=== PATIENT | female | born 1945 | race Caucasian/White ===

== ENCOUNTER 2017-04-15 06:01 | Day surgery (SDC) | payer BC ==
--- NOTE | ~2017-04-15 | EGD ---
EGD REPORT [facility] [address] [id number] NAME: PARMINDER SEGURA : [birth year] STATUS : REG [facility]#: [id number] AGE: 71 ADM/REG DATE : 04/15/17 MR#: [id number] REPORT SERV DATE: 04/15/17 DICTATED BY: SWAPNIL COX DATE: 04/15/17 REPORT STATUS : Draft TRANSCRIBED BY: [employer] DATE: 04/15/17 [facility] Center Patient Name: Parminder Segura Date of : 1945 Attending MD: SWAPNIL COX MD Procedure Date No Time: 04/15/2017 Procedure: Upper GI endoscopy Indications: Dysphagia Referring MD: LORNA ANDRADE Medicines: as per anesthesia Complications: No immediate complications. Procedure: Pre-Anesthesia Assessment: - ASA Grade Assessment: II - A patient with mild systemic disease. After obtaining informed consent, the endoscope was passed under direct vision. Throughout the procedure, the patient's blood pressure, pulse, and oxygen saturations were monitored continuously. The GIF [id number] was introduced through the mouth, and advanced to the third part of duodenum. The upper GI endoscopy was accomplished without difficulty. The patient tolerated the procedure. Findings: A mild Schatzki ring (acquired) was found at the gastroesophageal junction. The scope was withdrawn. Dilation was performed with a Al dilator with no resistance at 44 Fr. A small hiatus hernia was present. The examined duodenum was normal. Impression: - Mild Schatzki ring. Dilated. - Hiatus hernia. - Normal examined duodenum. Recommendation: - Continue present medications. Procedure Code(s): --- Professional --- 46869, Esophagogastroduodenoscopy, flexible, transoral; diagnostic, including collection of specimen(s) by brushing or washing, when performed (separate procedure) 11731, Dilation of esophagus, by unguided sound or bougie, single or multiple passes Diagnosis Code(s): --- Professional --- K22.2, Esophageal obstruction EGD REPORT [place] [address] [address] [id number] NAME: PARMINDER SEGURA : [birth year] STATUS : [place] [facility] [place] [id number] AGE: 71 ADM/REG DATE : 04/15/17 MR#: [id number] REPORT SERV DATE: 04/15/17 DICTATED BY: SWAPNIL COX. DATE: 04/15/17 REPORT STATUS : Draft TRANSCRIBED BY: [facility] DATE: 04/15/17 K44.9, Diaphragmatic hernia without obstruction or gangrene R13.10, Dysphagia, unspecified CPT copyright 2013 [employer]. All rights reserved. The codes documented in this report are preliminary and upon cigar inspector review may be revised to meet current compliance requirements. SWAPNIL COX MD 04/15/2017 7:35 AM This report has been signed electronically. Number of Addenda: 0 Note Initiated On: 04/15/2017 7:12 AM Scope Withdrawal Time 0 hours 0 minutes 0 seconds [address] [id number]
[~2017-04-15 06:01] MED LIST: ADVIL PO; ALAVERT10 MG PO; ALEVE220 MG PO; ALLEGRA180 PO; ARIMIDEX1 PO; CALTRA600D PO; FIBER WELL PO; PRAVAC PO
== END 2017-04-15 23:59 | disposition home health service (06) ==
LOC: DMU 06:01
PROVIDERS: Internal Medicine Gastroenterology
PROC: 0DJ08ZZ Inspection of Upper Intestinal Tract, Via Natural or Artificial Opening Endoscopic (ICD-10-PCS; principal; 2017-04-15 08:00)
PROC: 0D750ZZ Dilation of Esophagus, Open Approach (ICD-10-PCS; 2017-04-15 08:00)
DX: K22.2 Esophageal obstruction (principal); K44.9 Diaphragmatic hernia without obstruction or gangrene; Z88.2 Allergy status to sulfonamides; E78.00 Pure hypercholesterolemia, unspecified; Z98.890 Other specified postprocedural states; Z79.899 Other long term (current) drug therapy
CPT/HCPCS: J2405